=== PATIENT | male | born 1955 | race Caucasian/White ===

== ENCOUNTER → 2020-05-03 07:36 | Outpatient (CLI) | payer BC | END | disposition home or self-care (01) | LOC: D.NM 07:36 | PROVIDERS: ATTEND Clinical Nurse Specialist Adult Health | DX: R10.11 Right upper quadrant pain (principal); Z00.00 Encounter for general adult medical examination without abnormal findings; R35.1 Nocturia; Z68.28 Body mass index [BMI] 28.0-28.9, adult ==